=== PATIENT | female | born 1970 | race Caucasian/White ===

== ENCOUNTER 2020-02-26 09:42 | Outpatient (CLI) | payer SELFPAY | END 2020-02-26 09:43 | disposition home or self-care (01) | LOC: LAB 09:50 | DX: Z01.89 Encounter for other specified special examinations (principal) | CPT/HCPCS: 36415 ==

== ENCOUNTER → 2020-12-10 08:36 | Outpatient (BNVA) | payer SELFPAY | PROVIDERS: Visit Provider Psychiatry & Neurology Psychiatry | DX: F41.1 Generalized anxiety disorder (principal); F32.9 Major depressive disorder, single episode, unspecified | CPT/HCPCS: 90792 ==